=== PATIENT | female | born 1970 | race Caucasian/White ===

== ENCOUNTER 2020-02-12 12:38 | Emergency (ER) | payer SELFPAY ==
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
[2020-02-12] MEDS ORDERED: IBUPROFEN 400 MG TABLET (FP) PO ONE ×2 (13:00→13:05)
[2020-02-12 13:10] VITALS: BP 142/93; PULSE 106; TEMP 98.9; BMI 31.1
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
== END 2020-02-12 13:31 | disposition home or self-care (01) ==
LOC: FER 12:38
DX: R22.0 Localized swelling, mass and lump, head (principal); T74.11XA Adult physical abuse, confirmed, initial encounter; Z04.71 Encounter for examination and observation following alleged adult physical abuse
CPT/HCPCS: 99283-25

== ENCOUNTER 2020-03-22 21:01 | Emergency (ER) | payer SELFPAY ==
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
[2020-03-22 21:13] VITALS: BP 137/95; PULSE 97; TEMP 99.7; BMI 30.2
== END 2020-03-22 21:55 | disposition home or self-care (01) ==
LOC: FER 21:01
DX: S83.412A Sprain of medial collateral ligament of left knee, initial encounter (principal)
CPT/HCPCS: 73562-TC-LT-FY; 99283-25